=== PATIENT | male | born 1960 | race Caucasian/White ===

== ENCOUNTER 2017-04-10 20:30 | Outpatient (CLI) | payer OTHER | END 2017-04-10 20:31 | disposition home or self-care (01) | LOC: SLEEPLAB 20:30 | PROVIDERS: ATTEND Family Medicine | DX: G47.33 Obstructive sleep apnea (adult) (pediatric) (principal); I10 Essential (primary) hypertension | CPT/HCPCS: 95811 ==

== ENCOUNTER 2017-05-20 08:26 | Outpatient (CLI) | payer OTHER | END 2017-05-20 08:27 | disposition home or self-care (01) | LOC: BICCT 08:26 | PROVIDERS: ATTEND Urology | DX: R10.9 Unspecified abdominal pain (principal); N21.0 Calculus in bladder; N20.0 Calculus of kidney | CPT/HCPCS: 74176 ==

== ENCOUNTER 2017-05-29 15:46 | Outpatient (CLI) | payer OTHER ==
[2017-05-29 16:22] LABS: Hemoglobin 14.4 g/dL (14.0-18.0); Mean Corpuscular HGB CONC 33.4 g/dL (32.0-36.0); Mean Corpuscular Hemoglobin 30.4 pg (27.0-31.0); Mean Corpuscular Volume 91.1 fl (80.0-94.0); Mean Platelet Volume 5.9 fL (7.4-10.4); Platelet Count 370 thou/uL (130-400); RBC Distribution Width 12.1 % (11.5-14.5); Red Blood Cell (RBC) Count 4.74 mill/uL (4.70-6.10); White Blood Cell (WBC) Count 11.2 thou/uL (4.8-10.8)
[2017-05-29 16:30] LABS: PTT 28.3 SEC (22.9-36.1); Prothrombin Time 13.1 SEC (12.0-14.7)
[2017-05-29 16:40] LABS: Anion Gap 14 mmol/L (10-20); BUN (Urea Nitrogen) 16 mg/dL (8.4-25.7); Calc. Creatinine Clearance 0 mL/min (70-130); Calcium 9.7 mg/dL (7.8-10.44); Carbon Dioxide 26 mmol/L (22-29); Chloride 102 mmol/L (98-107); Estimated GFR-MDRD Greater than 90; Glucose 96 mg/dL (70-105); Potassium 3.7 mmol/L (3.5-5.1); Sodium 138 mmol/L (136-145)
== END 2017-05-29 15:47 | disposition home or self-care (01) ==
LOC: LABBT 15:46
PROVIDERS: ATTEND Urology
DX: Z01.818 Encounter for other preprocedural examination (principal); N20.1 Calculus of ureter
CPT/HCPCS: 80048; 85027; 85610; 85730; 93005; 93010

== ENCOUNTER 2017-05-30 08:36 | Day surgery (SDC) | payer OTHER ==
[2017-05-29 16:04] VITALS: BMI 37.5
[2017-05-30] MEDS ORDERED: cefTRIAXone\\ROCEPHIN 1 GM, Syringe 0.4 ML in Sterile Water 9.6 ML SLOW IVP SCH (11:00)
[2017-05-30] MEDS ORDERED: Iothalamate Meglumine 60% 50 ML VIAL FS ONE (12:06)
[2017-05-30] MEDS ORDERED: Fentanyl 250 MCG/5 ML VIAL ONE (12:11)
[2017-05-30] MEDS ORDERED: Midazolam HCl 2 mg/2 ml Vial ONE (12:12)
[2017-05-30] MEDS ORDERED: Phenazopyridine HCl 97.5 MG TABLET ONE (13:29)
[2017-05-30] MEDS ORDERED: Oxybutynin 5 MG TAB ONE (13:29)
--- NOTE | 2017-05-30 13:57 | OP ---
DATE OF PROCEDURE: 05/30/2017 SERVICE: Urology SURGEON: Adan Francois M.D. PREOPERATIVE DIAGNOSIS: Left ureteral stone. POSTOPERATIVE DIAGNOSIS: Left ureteral stone. PROCEDURE PERFORMED: Left ureteroscopy, laser lithotripsy, basket extraction of stone, and placement of a 6 x 26 double-J stent with string attached. INDICATIONS FOR PROCEDURE: Mr. Pires is a 56-year-old white male who presented with a week history of left groin pain. A CT demonstrated what appeared to be a bladder stone, but the patient's pain did not diminish. We elected to perform an office cystoscopy which demonstrated there was no stone in th e bladder, but there was swelling of the left distal ureter. Attempts to pass a basket into the left distal ureter was met with resistance indicating the stone was likely present near the distal ureter . I recommended coming to the operating room for removal of the stone and he agreed. Risks and bene fits have been discussed and he agreed to proceed forward. DESCRIPTION OF PROCEDURE: After identification of arm band and verification of consent, the patient was brought to the operating room where he underwent general anesthesia with an LMA. He was placed i n dorsal lithotomy position, prepped and draped in usual sterile fashion. After appropriate timeout, a lubricated 22 Irish rigid cystoscope was introduced per urethra into the bladder. The prostate w as mildly hypertrophic. The left ureter was edematous. Right ureter was normal. The bladder was ot herwise unremarkable. There were no stones seen. Attention was turned to the left ureteral orifice which was cannulated with a 0.035 sensor wire up to the level of the renal pelvis. The cystoscope wa s then removed after draining the bladder and a wire affixed and draped as a safety wire. A semi rig id ureteroscope was then passed alongside the sensor wire back into the bladder and into the left dis wayne ureter where the stone was encountered. A 360 micron laser fiber was used to fragment the stone into small pieces and a 1.9 Irish 0-tip nitinol basket used to extract the specimen and stone fragme nts. Upon completion, a distal ureteroscopy up to the iliac vessels did not demonstrate any addition al stone fragments. Satisfied the stone was now gone, the ureteroscope was then withdrawn and the cy stoscope was backloaded over the sensor wire back into the bladder. A 6 x 26 double-J stent with a s tring still attached was advanced over the sensor wire to the level of the renal pelvis. The wire wa s removed leaving a good curl in the renal pelvis and good curl in the bladder. The bladder was then emptied and the cystoscope removed. The string was then affixed to the patient's penis with an Op-S ite. He was then awakened and taken to PACU for recovery in stable condition. COMPLICATIONS: None. ESTIMATED BLOOD LOSS: Minimal. RETAINED TUBES AND DRAINS: A 6 x 26 double-J stent on the left. SPECIMENS: Stone for stone analysis. DISPOSITION: The patient will be discharged home. Follow up with me in 2 months with a and re nal ultrasound.
[2017-05-30] MEDS ORDERED: HYDROcodone/Acetaminophen 5/325 mg Tablet ONE (14:25)
--- NOTE | 2017-05-30 14:39 | RAD ---
RETROGRADE PYELOGRAM: Date: 05/30/17 COMPARISON: None. HISTORY: Left-sided ureteral stone. FINDINGS: Two images of a left retrograde pyelogram provided. Both images demonstrate a wire curling in the reg ion of the left renal collecting system and extending along the course of the left ureter. No contras t media is present. IMPRESSION: Limited retrograde pyelogram as above. POS: RO
[2017-05-30] MEDS ORDERED: Propofol 200 MG/20 ML VIAL ONE (14:54)
[2017-05-30] MEDS ORDERED: diphenhydrAMINE 50 MG/ML VIAL ONE (14:54)
[2017-05-30] MEDS ORDERED: Lidocaine 1% PF 5 ML VIAL ONE (14:54)
[2017-05-30] MEDS ORDERED: Dexamethasone 20 MG/5 ML VIAL ONE (14:54)
[2017-05-30] MEDS ORDERED: Ondansetron HCl/PF 4 MG/2 ML Vial ONE (14:54)
[2017-05-30] MEDS ORDERED: Glycopyrrolate 0.2 MG/ML 5 ML SYRINGE ONE (14:55)
== END 2017-05-30 15:24 | disposition home or self-care (01) ==
LOC: SDC 08:36
PROVIDERS: ATTEND Urology
PROC: 0T778DZ Dilation of Left Ureter with Intraluminal Device, Via Natural or Artificial Opening Endoscopic (ICD-10-PCS; principal; 2017-05-30)
PROC: 0TF78ZZ Fragmentation in Left Ureter, Via Natural or Artificial Opening Endoscopic (ICD-10-PCS; principal; 2017-05-30)
DX: N20.1 Calculus of ureter (principal); E78.5 Hyperlipidemia, unspecified; M19.90 Unspecified osteoarthritis, unspecified site; E78.00 Pure hypercholesterolemia, unspecified; M06.9 Rheumatoid arthritis, unspecified; Z87.442 Personal history of urinary calculi; Z87.891 Personal history of nicotine dependence; Z79.899 Other long term (current) drug therapy; Z98.890 Other specified postprocedural states
CPT/HCPCS: 74420; 82365; 88300; A4216; C1769; J0696; J1100; J1200; J2001; J2250; J2405; J2704; J3010; Q9961

== ENCOUNTER 2017-07-16 12:50 | Outpatient (CLI) | payer OTHER | END 2017-07-16 12:51 | disposition home or self-care (01) | LOC: BICULT 12:50 | PROVIDERS: ATTEND Urology | DX: N20.0 Calculus of kidney (principal) | CPT/HCPCS: 76770 ==

== ENCOUNTER 2018-07-15 09:38 | Outpatient (CLI) | payer OTHER ==
--- NOTE | 2018-07-15 10:14 | ULT ---
US Gallbladder RUQ History: [R 74.0 transaminitis] Comparison: None. Findings: Real-time grayscale and color evaluation of the right upper quadrant of the abdomen was per formed. The pancreas aorta and IVC are not well seen. Diffuse increased hepatic echotexture. Portal vein is patent with antegrade flow. Gallbladder is normal. No pericholecystic fluid. No cholelithiasis. Liver measures 17.2 cm in length. Right kidney measures 11.2 x 7.4 x 6.5 cm without mass, hydronephro sis, or abnormal calcifications. No intrahepatic or extrahepatic biliary dilatation. Common bile duct measures 3 mm. Impression: Diffuse hepatic steatosis and mild hepatomegaly. No acute gallbladder pathology.
== END 2018-07-15 09:39 | disposition home or self-care (01) ==
LOC: BICULT 09:38
PROVIDERS: ATTEND Family Medicine
DX: R74.0 Nonspecific elevation of levels of transaminase and lactic acid dehydrogenase [LDH] (principal); R16.0 Hepatomegaly, not elsewhere classified; K76.0 Fatty (change of) liver, not elsewhere classified
CPT/HCPCS: 76705

== ENCOUNTER 2018-07-18 07:33 | Day surgery (SDC) | payer OTHER ==
[2018-07-11 09:08] VITALS: BMI 38.3
--- NOTE | 2018-07-17 22:47 | HP ---
HISTORY: Mr. Olson is a pleasant 57-year-old man, here from referral of Dr. Blanco for evaluation of left upper extremity pain and numbness that fits at roughly C7 pattern involving the triceps and lateral forearm. 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 He brings an MRI from [place] from 2017 that reveals severe foraminal stenosis bilaterally at C5-6 and C6-7 with C6-7 fitting his symptoms very well. He has been receiving epidural steroid injections with Dr. Sauer for the last 3 years and has done well, but this continue to recur and he prefers to move forward with surgery if possible. PAST MEDICAL HISTORY: Significant for chronic pain syndrome, kidney stones, osteoarthritis. CURRENT MEDICATIONS: Indapamide, meloxicam. PAST SURGICAL HISTORY: Appendectomy, vasectomy, right hand surgeries, rotator cuff in right arm. ALLERGIES: NONE. REVIEW OF SYSTEMS: The patient denies bladder and bowel trouble. Denies weakness. Reports arm numbness and arm pain. Denies gait abnormality. Denies headaches. PHYSICAL EXAMINATION: GENERAL: The patient is alert and oriented x3. Gait is normal. No ataxia. Upper extremity motor exam reveals 5/5 strength in the bilateral upper extremities in all movements. Reflexes equal and present bilaterally at the biceps tendons. ASSESSMENT: Cervical radiculopathy. PLAN: Dr. Linton met with the patient, reviewed imaging, advocated for C6-7 ACDF. He explained to the patient the risks, benefits, and alternatives to the procedure. The patient expressed understanding and elected to move forward with surgery as discussed. I do believe the patient is mentally competent and capable of making medical decisions for himself and move forward with surgery as planned. Job ID: [id number]
[2018-07-18] MEDS ORDERED: Bupivacaine HCl 0.5%/Epinephrine 1:200,000/PF 30 ml Vial ONE (08:36)
[2018-07-18] MEDS ORDERED: Fentanyl 100 MCG/2 ML VIAL ONE (10:35)
[2018-07-18] MEDS ORDERED: Tamsulosin HCl 0.4 MG CAP ONE (12:31)
[2018-07-18] MEDS ORDERED: HYDROmorphone 2 MG/ML VIAL ONE (12:48)
--- NOTE | 2018-07-18 13:16 | OP ---
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 DIAGNOSIS: Cervical radiculopathy. PROCEDURE PERFORMED: Anterior cervical diskectomy and fusion, C6-C7. ANESTHESIA: General. DESCRIPTION OF PROCEDURE: The patient was brought in the operating room and placed under general anesthesia. He was placed on table in a supine position. A transverse incision was planned over the lateral aspect of the neck on the right. After prepping and draping and after an appropriate preoperative pause, the incision was created. The underlying platysma muscle was identified and incised. A blunt tissue plane anterior to the sternocleidomastoid muscle was used to gain access to the prevertebral space. A self-retaining retractor was placed in the wound for optimal exposure. After confirming the appropriate level with C-arm fluoroscopy, an annulotomy was performed in the C6-C7 space. All disk material as well as anterior and posterior osteophytes were removed. After completely decompressing the C6-C7 segment, a 7 mm lordotic PEEK cage packed with allograft and autograft material was placed within the interbody space. Secondary to the patient allergy to titanium, plate and screws were not placed. The wound was irrigated. Hemostasis was maintained throughout. Midline and lateral structures were inspected and found to be free from significant trauma. The wound was closed in anatomic layers and a pressure dressing was applied. There were no known procedural complications. Job ID: [id number]
[2018-07-18] MEDS ORDERED: Lidocaine 1% PF 5 ML VIAL ONE (15:49)
[2018-07-18] MEDS ORDERED: Ondansetron PF 4 MG/2 ML Vial ONE (15:49)
[2018-07-18] MEDS ORDERED: PROPOFOL 200 MG/20 ML VIAL ONE (15:49)
[2018-07-18] MEDS ORDERED: Glycopyrrolate 0.2 MG/ML 5 ML SYRINGE ONE (15:49)
[2018-07-18] MEDS ORDERED: Rocuronium Bromide 10 MG/ML (10ML VIAL) ONE (15:49)
== END 2018-07-18 14:30 | disposition home or self-care (01) ==
LOC: SDC 07:33 → EEVIPCON 07:33 → SDC 14:30
PROVIDERS: ATTEND Neurological Surgery
PROC: 0RT30ZZ Resection of Cervical Vertebral Disc, Open Approach (ICD-10-PCS; principal; 2018-07-18)
PROC: 0RG10A0 Fusion of Cervical Vertebral Joint with Interbody Fusion Device, Anterior Approach, Anterior Column, Open Approach (ICD-10-PCS; principal; 2018-07-18)
DX: M54.12 Radiculopathy, cervical region (principal); E78.5 Hyperlipidemia, unspecified; K21.9 Gastro-esophageal reflux disease without esophagitis; G89.4 Chronic pain syndrome; M19.90 Unspecified osteoarthritis, unspecified site; M48.02 Spinal stenosis, cervical region; Z79.1 Long term (current) use of non-steroidal anti-inflammatories (NSAID); Z79.899 Other long term (current) drug therapy
CPT/HCPCS: 76000; 93005; 93010; C1776; J0670; J0690; J1170; J2001; J2405; J2704; J3010

== ENCOUNTER 2019-11-24 10:09 | Outpatient (CLI) | payer OTHER ==
[2019-11-25 13:02] LABS: SARS-CoV-2 MS2 Positive; SARS-CoV-2 N Gene Negative; SARS-CoV-2 S Gene Negative; SARS-CoV-2 by NAA Not Detected (NotDetected); SARS-CoV-2 orf1ab Negative
== END 2019-11-24 10:10 | disposition home or self-care (01) ==
LOC: LABSCS 10:09
PROVIDERS: ATTEND Neurological Surgery
DX: M54.12 Radiculopathy, cervical region (principal); Z20.828 Contact with and (suspected) exposure to other viral communicable diseases
CPT/HCPCS: 87635; U0003

== ENCOUNTER 2020-01-05 07:50 | Outpatient (CLI) | payer OTHER ==
[2020-01-05 17:27] LABS: SARS-CoV-2 MS2 Positive; SARS-CoV-2 N Gene Negative; SARS-CoV-2 S Gene Negative; SARS-CoV-2 by NAA Not Detected (NotDetected); SARS-CoV-2 orf1ab Negative
== END 2020-01-05 07:51 | disposition home or self-care (01) ==
LOC: LABBT 07:50
PROVIDERS: ATTEND Neurological Surgery
DX: M54.12 Radiculopathy, cervical region (principal); Z20.828 Contact with and (suspected) exposure to other viral communicable diseases
CPT/HCPCS: 87635; U0003

== ENCOUNTER 2020-01-08 06:35 | Day surgery (SDC) | payer OTHER ==
[2020-01-07 10:47] VITALS: BMI 39.9
--- NOTE | 2020-01-07 21:32 | HP ---
HISTORY OF PRESENT ILLNESS: Mr. Olson is known to us from prior ACDF from C6-C7, which was performed a few years ago. 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 He has attempted injections and physical therapy with little to no benefit and would not like to pursue these any longer. He hopes to discuss possible surgical intervention given the success with his prior surgery. PAST MEDICAL HISTORY: Significant for kidney stones, chronic pain, and arthritis. PAST SURGICAL HISTORY: Right hand, ACDF, lithotripsy, and right shoulder. CURRENT MEDICATIONS: Unlisted. ALLERGIES: NO KNOWN DRUG ALLERGIES. ASSESSMENT: Cervical radiculopathy. PLAN: Dr. Linton met with the patient, reviewed imaging, advocated for C5-C6 ACDF. He explained to the patient the risks, benefits, and alternatives to the procedure. The patient expressed understanding and elected to move forward with surgery as discussed. I do believe the patient is mentally component and capable of making medical decisions for himself. We will move forward with surgery as planned. Job ID: [id number]
[2020-01-08] MEDS ORDERED: Fentanyl 100 MCG/2 ML VIAL ONE (08:28)
[2020-01-08] MEDS ORDERED: HYDROmorphone 0.5 MG/0.5 ML SYRINGE ONE ×2 (08:28→09:21)
[2020-01-08] MEDS ORDERED: Lidocaine 2% Jelly 5 ML TUBE ONE (08:28)
[2020-01-08] MEDS ORDERED: Midazolam HCl 5 mg/5 ml Vial ONE (08:28)
[2020-01-08] MEDS ORDERED: Midazolam HCl 2 mg/2 ml Vial ONE (08:29)
[2020-01-08] MEDS ORDERED: Lidocaine 1% PF 5 ML VIAL ONE (10:17)
[2020-01-08] MEDS ORDERED: Rocuronium Bromide 10 MG/ML (10ML VIAL) ONE (10:17)
[2020-01-08] MEDS ORDERED: Glycopyrrolate 0.2 MG/ML 5 ML SYRINGE ONE (10:17)
[2020-01-08] MEDS ORDERED: PROPOFOL 200 MG/20 ML VIAL ONE (10:17)
[2020-01-08] MEDS ORDERED: Ondansetron PF 4 MG/2 ML Vial ONE (10:17)
[2020-01-08] MEDS ORDERED: Dexamethasone 20 MG/5 ML VIAL ONE (10:17)
[2020-01-08] MEDS ORDERED: Labetalol HCl 100 MG/20 ML VIAL ONE (10:29)
[2020-01-08] MEDS ORDERED: Tamsulosin HCl 0.4 MG CAP ONE (10:39)
--- NOTE | 2020-01-11 14:32 | OP ---
DATE OF PROCEDURE: 01/08/2020 [employer] CONSULTANT: Benjie Raza PA-C INDICATION: Pain. DIAGNOSIS: Cervical radiculopathy. PROCEDURE PERFORMED: Reoperation anterior cervical diskectomy and fusion, C5-6. ANESTHESIA: General. DESCRIPTION OF PROCEDURE: The patient was brought into the operating room and placed under general anesthesia. He was placed on table in supine position. A transverse incision was planned in close proximity to a previous incision from a prior operation. After prepping and draping and after an appropriate preoperative pause, the incision was created. The underlying platysma muscle was identified and incised. A blunt tissue plane anterior to the sternocleidomastoid muscle was used to gain access to the prevertebral space. Self-retaining retractors were placed for optimal exposure. After identifying the C5-6 disk space, an annulotomy was performed in the disk space, where disk material as well as anterior and posterior osteophytes were removed. After completing the decompression, a 7-mm lordotic PEEK cage packed with allograft and autograft material was placed within the interbody space. The wound was then irrigated. Hemostasis was maintained throughout. The wound was then closed in anatomic layers, and a pressure dressing was applied. There were no known procedural complications. Job ID: [id number]
== END 2020-01-08 12:55 | disposition home or self-care (01) ==
LOC: SDC 06:35
PROVIDERS: ATTEND Neurological Surgery
PROC: 0RT30ZZ Resection of Cervical Vertebral Disc, Open Approach (ICD-10-PCS; principal; 2020-01-08)
PROC: 0RG10A0 Fusion of Cervical Vertebral Joint with Interbody Fusion Device, Anterior Approach, Anterior Column, Open Approach (ICD-10-PCS; principal; 2020-01-08)
DX: M54.12 Radiculopathy, cervical region (principal); G89.29 Other chronic pain; M06.9 Rheumatoid arthritis, unspecified; E78.5 Hyperlipidemia, unspecified; K21.9 Gastro-esophageal reflux disease without esophagitis; N18.9 Chronic kidney disease, unspecified; Z79.1 Long term (current) use of non-steroidal anti-inflammatories (NSAID); Z79.899 Other long term (current) drug therapy; Z88.8 Allergy status to other drugs, medicaments and biological substances
CPT/HCPCS: 76000; C1713; C1776; J0690; J1100; J1170; J2250; J2405; J2704; J3010

== ENCOUNTER 2020-08-19 13:21 | Outpatient (CLI) | payer OTHER ==
[2020-08-19 20:46] LABS: SARS-CoV-2 PCR by NAA Not Detected (NotDetected)
== END 2020-08-19 13:22 | disposition home or self-care (01) ==
LOC: LABBT 13:21
PROVIDERS: ATTEND Student in an Organized Health Care Education/Training Program
DX: Z01.818 Encounter for other preprocedural examination (principal); L72.3 Sebaceous cyst; R22.1 Localized swelling, mass and lump, neck; M54.2 Cervicalgia
CPT/HCPCS: 93005; 93010; U0003; U0005

== ENCOUNTER 2020-08-23 07:18 | Day surgery (SDC) | payer OTHER ==
[2020-08-22 14:07] VITALS: BMI 37.2
[2020-08-23] MEDS ORDERED: Lidocaine 1% w/Epinephrine 1:100K 20 ML VIAL ONE (09:06)
[2020-08-23] MEDS ORDERED: Ondansetron PF 4 MG/2 ML Vial ONE (09:21)
[2020-08-23] MEDS ORDERED: Dexamethasone 20 MG/5 ML VIAL ONE (09:21)
[2020-08-23] MEDS ORDERED: PROPOFOL 200 MG/20 ML VIAL ONE (09:21)
[2020-08-23] MEDS ORDERED: Lidocaine 1% PF 5 ML VIAL ONE (09:21)
[2020-08-23] MEDS ORDERED: Ketorolac Tromethamine 30 MG/ML VIAL ONE (09:21)
[2020-08-23] MEDS ORDERED: PHENYLEPHRINE-NS 100 MCG/ML 10 ML SYRINGE ONE (09:21)
[2020-08-23] MEDS ORDERED: Fentanyl 100 MCG/2 ML VIAL ONE (09:32)
[2020-08-23] MEDS ORDERED: Bacitracin Zinc Ointment 30 gm TUBE ONE (10:44)
== END 2020-08-23 13:05 | disposition home or self-care (01) ==
LOC: SDC 07:18
PROVIDERS: ATTEND Student in an Organized Health Care Education/Training Program
PROC: 0JB40ZZ Excision of Right Neck Subcutaneous Tissue and Fascia, Open Approach (ICD-10-PCS; principal; 2020-08-23)
DX: M79.89 Other specified soft tissue disorders (principal); E78.5 Hyperlipidemia, unspecified; E78.00 Pure hypercholesterolemia, unspecified; K21.9 Gastro-esophageal reflux disease without esophagitis; M06.9 Rheumatoid arthritis, unspecified; Z87.891 Personal history of nicotine dependence; Z88.8 Allergy status to other drugs, medicaments and biological substances
CPT/HCPCS: 88304; J0690; J1100; J1885; J2405; J2704; J3010

== ENCOUNTER 2021-10-14 09:52 | Inpatient (IN) | payer BC ==
[2021-10-14] MEDS ORDERED: Morphine 4 MG/ML VIAL ONE ×2 (10:33→12:14)
[2021-10-14] MEDS ORDERED: Ondansetron PF 4 MG/2 ML Vial ONE (10:33)
[2021-10-14] MEDS ORDERED: Ketorolac Tromethamine 30 MG/ML VIAL ONE (10:33)
[2021-10-14] MEDS ORDERED: cefTRIAXone\\ROCEPHIN 2 GM VIAL ONE (10:50)
[2021-10-14 11:09] LABS: #Eosinphils 0.1 thou/uL (0.0-0.7); #Lymphocytes 1.5 thou/uL (1.20-3.40); #Monocytes 1.4 thou/uL (0.11-0.59); #Neutrophils 11.1 thou/uL (1.40-6.50); %Basophils 0.1 % (0.0-1.0); %Eosinophils 0.6 % (0.0-10.0); %Lymphocytes 10.9 % (21.0-51.0); %Monocytes 9.7 % (0.0-10.0); %Neutrophils 78.6 % (42.0-75.0); Hemoglobin 12.3 g/dL (14.0-18.0); Mean Corpuscular HGB CONC 32.6 g/dL (32.0-36.0); Mean Corpuscular Hemoglobin 29.2 pg (27.0-31.0); Mean Corpuscular Volume 89.4 fL (78.0-98.0); Mean Platelet Volume 6.7 fL (7.4-10.4); Platelet Count 307 thou/uL (130-400); Red Blood Cell (RBC) Count 4.22 mill/uL (4.70-6.10); White Blood Cell (WBC) Count 14.1 thou/uL (4.8-10.8)
[2021-10-14 11:20] LABS: Bacteria/HPF None Seen HPF (None Seen); Bilirubin Negative (Negative); Blood, Urine Negative (Negative); Clarity Clear (Clear); Glucose, Urine (Dipstick) Normal (Negative); Ketone, Urine Trace mg/dL (Negative); Leukocyte Negative Leu/uL (Negative); Nitrite Negative (Negative); Protein, Urine (Dipstick) 70 mg/dL (Neg-Trace); RBC/HPF 0-3 HPF (0-3); Specific Gravity, Urine 1.027 (1.002-1.036); Squamous Epithelial None Seen HPF (0-3); Urobilinogen Normal mg/dL (Less than 2)
[2021-10-14 11:32] LABS: ALT (SGPT) 55 U/L (8-55); AST (SGOT) 31 U/L (5-34); Albumin 3.9 g/dL (3.5-5.0); Alkaline Phosphatase 83 U/L (40-110); Anion Gap 13 mmol/L (10-20); BUN (Urea Nitrogen) 16 mg/dL (8.4-25.7); Bilirubin, Total 0.8 mg/dL (0.2-1.2); Calc. Creatinine Clearance 0 mL/min (70-130); Calcium 9.1 mg/dL (7.8-10.44); Carbon Dioxide 29 mmol/L (22-29); Chloride 99 mmol/L (98-107); Estimated GFR 60; Globulin 3.7 g/dL (2.4-3.5); Glucose 156 mg/dL (70-105); Potassium 4.1 mmol/L (3.5-5.1); Protein, Total 7.6 g/dL (6.0-8.3); Sodium 137 mmol/L (136-145)
[2021-10-14] MEDS ORDERED: Vancomycin 1 GM/200 ML BAG ONE (12:26)
[2021-10-14 12:35] LABS: INR-International Normal Ratio 1.1; PTT 36.6 sec (22.9-36.1); Prothrombin Time 14.1 sec (12.0-14.7)
[2021-10-14] MEDS ORDERED: Fentanyl 100 MCG/2 ML VIAL ONE ×3 (13:02→13:39)
[2021-10-14] MEDS ORDERED: Ketamine 50 MG/ML (10ML VIAL) ONE (13:12)
[2021-10-14] MEDS ORDERED: PROPOFOL 200 MG/20 ML VIAL ONE (13:22)
[2021-10-14] MEDS ORDERED: Lidocaine 1% PF 5 ML VIAL ONE (13:22)
[2021-10-14 13:27] LABS: SARS-CoV-2 NAA Rapid Test Not Detected (NotDetected)
[2021-10-14] MEDS ORDERED: Ketorolac Tromethamine 30 MG/ML VIAL IVP PRN (14:10)
[2021-10-14] MEDS ORDERED: Promethazine HCl 25 MG/ML VIAL IVPB PRN (14:10)
[2021-10-14] MEDS ORDERED: Ondansetron HCl/PF 4 MG/2 ML Vial IVP PRN (14:10)
[2021-10-14] MEDS ORDERED: Promethazine HCl 25 MG/ML VIAL IM PRN (14:10)
[2021-10-14] MEDS ORDERED: HYDROmorphone 2 MG/ML VIAL SLOW IVP PRN (14:10)
[2021-10-14] MEDS ORDERED: hydrALAZINE 20 MG/ML VIAL SLOW IVP PRN (14:26)
[2021-10-14] MEDS ORDERED: Acetaminophen 325 MG TAB PO PRN (14:26)
[2021-10-14] MEDS ORDERED: Ondansetron PF 4 MG/2 ML Vial IVP PRN (14:26)
[2021-10-14] MEDS ORDERED: Ondansetron ODT 4 MG TAB PO PRN (14:26)
[2021-10-14] MEDS ORDERED: HYDROcodone/Acetaminophen 5/325 mg Tablet PO PRN (14:26)
[2021-10-14] MEDS ORDERED: cefTRIAXone\\ROCEPHIN 1 GM in Sodium Chloride 0.9% 100 ML IVPB SCH (14:30)
[2021-10-14] MEDS ORDERED: traMADol HCl 50 MG TAB PO PRN (14:31)
[2021-10-14] MEDS: Lactated Ringer's 1,000 ML IV SCH (15:21)
[2021-10-14 15:50] VITALS: BMI 41.5
[2021-10-14] MEDS: Atorvastatin Calcium 20 MG TAB PO SCH (20:22)
[2021-10-14] MEDS: HYDROcodone/Acetaminophen 10/325 mg Tablet PO PRN (20:22)
[2021-10-14] MEDS: Zolpidem Tartrate 5 MG TAB PO PRN (20:23)
[2021-10-14] MEDS: tiZANidine HCl 4 MG TAB PO PRN (20:23)
[2021-10-15] MEDS: HYDROcodone/Acetaminophen 10/325 mg Tablet PO PRN ×2 (00:29→21:02)
[2021-10-15] MEDS: Lactated Ringer's 1,000 ML IV SCH ×2 (03:02→17:04)
[2021-10-15 07:18] LABS: #Eosinphils 0.3 thou/uL (0.0-0.7); #Lymphocytes 1.7 thou/uL (1.20-3.40); #Monocytes 0.8 thou/uL (0.11-0.59); #Neutrophils 6.5 thou/uL (1.40-6.50); %Basophils 0.4 % (0.0-1.0); %Eosinophils 2.8 % (0.0-10.0); %Lymphocytes 18.5 % (21.0-51.0); %Monocytes 8.8 % (0.0-10.0); %Neutrophils 69.7 % (42.0-75.0); Hemoglobin 11.9 g/dL (14.0-18.0); Mean Corpuscular HGB CONC 32.1 g/dL (32.0-36.0); Mean Corpuscular Hemoglobin 28.9 pg (27.0-31.0); Mean Corpuscular Volume 90.3 fL (78.0-98.0); Mean Platelet Volume 6.6 fL (7.4-10.4); Platelet Count 276 thou/uL (130-400); RBC Distribution Width 12.9 % (11.5-14.5); Red Blood Cell (RBC) Count 4.12 mill/uL (4.70-6.10); White Blood Cell (WBC) Count 9.3 thou/uL (4.8-10.8)
[2021-10-15 07:40] LABS: Anion Gap 12 mmol/L (10-20); BUN (Urea Nitrogen) 14 mg/dL (8.4-25.7); Calc. Creatinine Clearance 158 mL/min (70-130); Calcium 8.6 mg/dL (7.8-10.44); Carbon Dioxide 27 mmol/L (22-29); Chloride 102 mmol/L (98-107); Estimated GFR 100; Glucose 128 mg/dL (70-105); Potassium 3.8 mmol/L (3.5-5.1); Sodium 137 mmol/L (136-145)
[2021-10-15] MEDS: Enoxaparin Sodium 40 MG/0.4 ML SYRINGE SC SCH (08:31)
[2021-10-15] MEDS: cefTRIAXone\\ROCEPHIN 2 GM in Sodium Chloride 0.9% 100 ML IVPB SCH (10:16)
[2021-10-15] MEDS: tiZANidine HCl 4 MG TAB PO PRN (21:02)
[2021-10-15] MEDS: Zolpidem Tartrate 5 MG TAB PO PRN (21:02)
[2021-10-15] MEDS: Atorvastatin Calcium 20 MG TAB PO SCH (21:02)
[2021-10-16] MEDS: HYDROcodone/Acetaminophen 10/325 mg Tablet PO PRN (06:26)
[2021-10-16] MEDS: Lactated Ringer's 1,000 ML IV SCH (06:26)
[2021-10-16] MEDS: Enoxaparin Sodium 40 MG/0.4 ML SYRINGE SC SCH (08:28)
[2021-10-16] MEDS: cefTRIAXone\\ROCEPHIN 2 GM in Sodium Chloride 0.9% 100 ML IVPB SCH (12:06)
[2021-10-16 15:10] VITALS: BP 148/89; TEMP 98
== END 2021-10-16 15:13 | disposition home or self-care (01) | DRG 854 ==
LOC: ERS 09:52 → SDC 12:38 → OBSVTOIN 14:59 → T4-B 14:59
PROVIDERS: ADMIT Internal Medicine; ATTEND Urology
PROC: 0T778DZ Dilation of Left Ureter with Intraluminal Device, Via Natural or Artificial Opening Endoscopic (ICD-10-PCS; principal; 2021-10-14)
PROC: BT1FZZZ Fluoroscopy of Left Kidney, Ureter and Bladder (ICD-10-PCS; 2021-10-14)
PROC: 3E03329 Introduction of Other Anti-infective into Peripheral Vein, Percutaneous Approach (ICD-10-PCS; 2021-10-14)
DX: A41.9 Sepsis, unspecified organism (principal); N13.6 Pyonephrosis; N17.9 Acute kidney failure, unspecified; Z20.822 Contact with and (suspected) exposure to COVID-19; I10 Essential (primary) hypertension; E78.00 Pure hypercholesterolemia, unspecified; M19.90 Unspecified osteoarthritis, unspecified site; G89.4 Chronic pain syndrome; N20.0 Calculus of kidney; Z79.899 Other long term (current) drug therapy; Z91.09 Other allergy status, other than to drugs and biological substances; Z98.1 Arthrodesis status
CPT/HCPCS: 36415; 71045; 74176; 74420; 80048; 80053; 81003; 81015; 83605; 85025; 85610; 85730; 87040; 87086; 93005; C2617; J0696; J1650; J1885; J2270; J2405; J2704; J3010; J3370; J3490; J7120

== ENCOUNTER 2021-10-25 08:23 | Outpatient (CLI) | payer BC ==
[2021-10-25 09:45] LABS: Bilirubin Neg (Negative); Blood, Urine 250 (Negative); Clarity Cloudy (Clear); Glucose, Urine (Dipstick) Normal (Negative); Ketone, Urine Negative (Negative); Leukocyte 100 (Negative); Nitrite Negative (Negative); Protein, Urine (Dipstick) 100 mg/dl (Neg-Trace); Urobilinogen Normal mg/dL (Less than 2)
[2021-10-25 09:51] LABS: Hemoglobin 12.3 g/dL (13.5-17.5); Mean Corpuscular HGB CONC 32.6 g/dL (32.0-36.0); Mean Corpuscular Hemoglobin 28.5 pg (27.0-33.0); Mean Corpuscular Volume 87.5 fl (81.2-95.1); Platelet Count 398 10x3/uL (150-450); RBC Distribution Width 13.5 % (11.5-14.5); Red Blood Cell (RBC) Count 4.31 10x6/uL (4.32-5.72); White Blood Cell (WBC) Count 8.8 10x3/uL (3.5-10.5)
[2021-10-25 10:20] LABS: PTT 26.2 sec (22.0-33.0); Prothrombin Time 10.4 sec (9.5-12.1)
[2021-10-25 10:21] LABS: RBC/HPF Greater than 50 HPF (0-3); Squamous Epithelial None Seen HPF (0-3)
[2021-10-25 10:22] LABS: Anion Gap 16 mmol/L (10-20); BUN (Urea Nitrogen) 16 mg/dL (8.4-25.7); Bacteria/HPF Rare-Few HPF (None Seen); Calc. Creatinine Clearance 0 mL/min (70-130); Calcium 9.7 mg/dL (7.8-10.44); Carbon Dioxide 25 mmol/L (22-29); Chloride 101 mmol/L (98-107); Estimated GFR 102; Glucose 234 mg/dL (70-105); Potassium 4.5 mmol/L (3.5-5.1); Sodium 137 mmol/L (136-145)
== END 2021-10-25 08:24 | disposition home or self-care (01) ==
LOC: LABBT 08:23
PROVIDERS: ATTEND Urology
DX: Z01.812 Encounter for preprocedural laboratory examination (principal); N20.2 Calculus of kidney with calculus of ureter; Z20.822 Contact with and (suspected) exposure to COVID-19
CPT/HCPCS: 80048; 81001; 85027; 85610; 85730; 87086; 87811

== ENCOUNTER 2021-10-27 08:47 | Day surgery (SDC) | payer BC ==
[2021-10-25 14:59] VITALS: BMI 40.7
[2021-10-27] MEDS ORDERED: Levofloxacin 500 mg/D5W 100 ml Premix Bag ONE (10:59)
[2021-10-27] MEDS ORDERED: Midazolam HCl 2 mg/2 ml Vial ONE (11:10)
[2021-10-27] MEDS ORDERED: Fentanyl 100 MCG/2 ML VIAL ONE ×3 (11:10→13:15)
[2021-10-27] MEDS ORDERED: B & O ONE (11:11)
[2021-10-27] MEDS ORDERED: Ondansetron PF 4 MG/2 ML Vial ONE (11:24)
[2021-10-27] MEDS ORDERED: Lidocaine 1% PF 5 ML VIAL ONE (11:24)
[2021-10-27] MEDS ORDERED: PROPOFOL 200 MG/20 ML VIAL ONE (11:24)
[2021-10-27] MEDS ORDERED: Meperidine HCl/PF 25 MG/ML VIAL ONE (13:15)
[2021-10-27] MEDS ORDERED: HYDROcodone/Acetaminophen 5/325 mg Tablet ONE (14:07)
[2021-10-27] MEDS ORDERED: Metoprolol Tartrate 5 MG/5 ML VIAL ONE (15:20)
== END 2021-10-27 16:10 | disposition home or self-care (01) ==
LOC: SDC 08:47
PROVIDERS: ATTEND Urology
PROC: 0TC38ZZ Extirpation of Matter from Right Kidney Pelvis, Via Natural or Artificial Opening Endoscopic (ICD-10-PCS; principal; 2021-10-27)
PROC: 0TC48ZZ Extirpation of Matter from Left Kidney Pelvis, Via Natural or Artificial Opening Endoscopic (ICD-10-PCS; principal; 2021-10-27)
PROC: 0T788DZ Dilation of Bilateral Ureters with Intraluminal Device, Via Natural or Artificial Opening Endoscopic (ICD-10-PCS; principal; 2021-10-27)
DX: N20.0 Calculus of kidney (principal); I10 Essential (primary) hypertension; E78.00 Pure hypercholesterolemia, unspecified; M19.90 Unspecified osteoarthritis, unspecified site; G89.29 Other chronic pain; Z79.2 Long term (current) use of antibiotics; Z79.899 Other long term (current) drug therapy; Z91.048 Other nonmedicinal substance allergy status
CPT/HCPCS: 76000; 82365; 88300; C1713; C1769; C2617; J1956; J2175; J2250; J2405; J2704; J3010

== ENCOUNTER 2022-01-03 15:13 | Outpatient (CLI) | payer BC | END 2022-01-03 15:14 | disposition home or self-care (01) | LOC: BICULT 15:13 | PROVIDERS: ATTEND Urology | DX: N20.0 Calculus of kidney (principal) | CPT/HCPCS: 76770 ==

== ENCOUNTER 2022-02-06 13:04 | Outpatient (CLI) | payer BC | END 2022-02-06 13:05 | disposition home or self-care (01) | LOC: MRI 13:04 | PROVIDERS: ATTEND Orthopaedic Surgery | DX: M75.112 Incomplete rotator cuff tear or rupture of left shoulder, not specified as traumatic (principal); S46.812A Strain of other muscles, fascia and tendons at shoulder and upper arm level, left arm, initial encounter; S43.432A Superior glenoid labrum lesion of left shoulder, initial encounter ==

== ENCOUNTER 2022-05-02 12:39 | Outpatient (CLI) | payer BC | END 2022-05-02 12:40 | disposition home or self-care (01) | LOC: TBSIIMAG 12:39 | PROVIDERS: ATTEND Neurological Surgery | DX: M47.22 Other spondylosis with radiculopathy, cervical region (principal); M48.02 Spinal stenosis, cervical region; Z98.890 Other specified postprocedural states | CPT/HCPCS: 72141 ==

== ENCOUNTER 2022-05-14 14:13 | Outpatient (CLI) | payer BC | END 2022-05-14 14:14 | disposition home or self-care (01) | LOC: BICCT 14:13 | PROVIDERS: ATTEND Neurological Surgery | DX: M47.22 Other spondylosis with radiculopathy, cervical region (principal); M47.813 Spondylosis without myelopathy or radiculopathy, cervicothoracic region; Z98.890 Other specified postprocedural states | CPT/HCPCS: 72125 ==

== ENCOUNTER 2022-10-15 14:50 | Outpatient (CLI) | payer BC | END 2022-10-15 14:51 | disposition home or self-care (01) | LOC: BICMRI 14:50 | PROVIDERS: ATTEND Nurse Practitioner Family | DX: M51.17 Intervertebral disc disorders with radiculopathy, lumbosacral region (principal); M47.816 Spondylosis without myelopathy or radiculopathy, lumbar region; M47.27 Other spondylosis with radiculopathy, lumbosacral region; M51.36 Other intervertebral disc degeneration, lumbar region; M48.07 Spinal stenosis, lumbosacral region; M48.061 Spinal stenosis, lumbar region without neurogenic claudication | CPT/HCPCS: 72148 ==

== ENCOUNTER 2023-02-13 09:30 | Outpatient (CLI) | payer BC ==
[2023-02-13 11:40] LABS: Hematocrit 43.4 % (38.8-50.0); Hemoglobin 14.2 g/dL (13.5-17.5); Mean Corpuscular HGB CONC 32.7 g/dL (32.0-36.0); Mean Corpuscular Hemoglobin 28.2 pg (27.0-33.0); Mean Corpuscular Volume 86.1 fl (81.2-95.1); Mean Platelet Volume 9.1 fl (7.4-10.4); Platelet Count 400 10x3/uL (150-450); RBC Distribution Width 13.8 % (11.5-14.5); Red Blood Cell (RBC) Count 5.04 10x6/uL (4.32-5.72); White Blood Cell (WBC) Count 7.8 10x3/uL (3.5-10.5)
[2023-02-13 12:12] LABS: Anion Gap 15 mmol/L (10-20); BUN (Urea Nitrogen) 15 mg/dL (8.4-25.7); Calc. Creatinine Clearance 0 mL/min (70-130); Calcium 9.3 mg/dL (7.8-10.44); Carbon Dioxide 23 mmol/L (22-29); Chloride 103 mmol/L (98-107); Estimated GFR 102; Glucose 89 mg/dL (70-105); Potassium 4.1 mmol/L (3.5-5.1); Sodium 137 mmol/L (136-145)
== END 2023-02-13 09:31 | disposition home or self-care (01) ==
LOC: LABBT 09:30
PROVIDERS: ATTEND Neurological Surgery
DX: Z01.818 Encounter for other preprocedural examination (principal); M54.12 Radiculopathy, cervical region
CPT/HCPCS: 80048; 85027; 93005; 93010

== ENCOUNTER 2023-02-15 05:40 | Day surgery (SDC) | payer BC ==
[2023-02-13 10:00] VITALS: BMI 40.7
[2023-02-15] MEDS ORDERED: Thrombin 5000 UNITS/5 ML VIAL ONE (06:33)
[2023-02-15] MEDS ORDERED: EPINEPHrine 1 MG/ML VIAL ONE (06:33)
[2023-02-15] MEDS ORDERED: Bupivacaine PF 0.5% 30 ML VIAL ONE (06:33)
[2023-02-15] MEDS ORDERED: PROPOFOL 20 ML ONE (06:55)
[2023-02-15] MEDS ORDERED: fentaNYL PF 100 MCG/2 ML SYRINGE ONE ×3 (06:59→09:14)
[2023-02-15] MEDS ORDERED: Midazolam HCl 2 mg/2 ml Vial ONE (06:59)
[2023-02-15] MEDS ORDERED: Sodium Chloride 0.9% 100 ML ONE ×2 (07:07→10:38)
[2023-02-15] MEDS ORDERED: CEFAZOLIN 2 GM VIAL ONE ×2 (07:07→10:37)
[2023-02-15] MEDS ORDERED: Metoclopramide HCl 10 MG/2 ML VIAL ONE (07:15)
[2023-02-15] MEDS ORDERED: Rocuronium Bromide 10 MG/ML (10ML VIAL) ONE (07:15)
[2023-02-15] MEDS ORDERED: SUGAMMADEX SODIUM 200 MG/2 ML VIAL ONE (08:21)
[2023-02-15] MEDS ORDERED: Ketorolac Tromethamine 30 MG/ML VIAL ONE (08:21)
[2023-02-15] MEDS ORDERED: Ondansetron PF 4 MG/2 ML Vial ONE (08:26)
[2023-02-15] MEDS ORDERED: HYDROmorphone 0.5 MG/0.5 ML SYRINGE ONE ×2 (08:50→09:01)
== END 2023-02-15 11:15 | disposition home or self-care (01) ==
LOC: SDC 05:40
PROVIDERS: ATTEND Neurological Surgery
PROC: 0RT30ZZ Resection of Cervical Vertebral Disc, Open Approach (ICD-10-PCS; principal; 2023-02-15)
PROC: 01N10ZZ Release Cervical Nerve, Open Approach (ICD-10-PCS; principal; 2023-02-15)
DX: M54.12 Radiculopathy, cervical region (principal); M48.02 Spinal stenosis, cervical region; E78.5 Hyperlipidemia, unspecified; G89.29 Other chronic pain; M19.90 Unspecified osteoarthritis, unspecified site; E55.9 Vitamin D deficiency, unspecified; Z79.890 Hormone replacement therapy; Z90.49 Acquired absence of other specified parts of digestive tract; Z90.89 Acquired absence of other organs; Z96.652 Presence of left artificial knee joint; Z87.891 Personal history of nicotine dependence
CPT/HCPCS: C1713; J0171; J1170; J1885; J2250; J2405; J2704; J2765; J3490; S0020